=== PATIENT | male | born 1960 | race Caucasian/White ===

== ENCOUNTER 2022-09-27 11:59 | Emergency (ER) | payer OTHER ==
--- OUTSIDE RECORDS SUMMARY | 2022-09-27 12:03 | XMS REPORT | Continuity of Care Document ---
:1960 Author Organization [facility] t Address [address] [place] [address] Care Team Providers Name Role Phone Yariel Aguilar MD Primary Care Physician Brian Hemphill Attending Clinician RADIOLOGY Attending Clinician Unavailable Radiology Attending Clinician Unavailable TIMMY PINTO Attending Clinician Unavailable Ghada Comer Attending Clinician Unavailable Timmy Pinto MD Attending Clinician Doctor Unassigned, [place] Attending Clinician Unavailable ROSALVA SALAZAR Admitting Clinician Unavailable Payers Payer Name Policy Type Policy Number Effective Date Expiration Date S adarsh [employer] [id number] 2022 OUT OF NETWORK 00:00:00 Problems Condition Condition Condition Status Onset Resolution Last Treating Co mments Source Name Details Category Date Date Treatment Clinician Date Right hip Right hip Disease Active 2015-08 Uni vers pain pain 0-21 ity of 00:00: [place] 00 Medical Branch Lateral Lateral Disease Recurre 2015-08 Method i epicondyli epicondyli nce 0-18 st tis of tis of 00:00: Hospita left elbow left elbow 00 l Asthenia Asthenia Problem Active 2022-07-21 Memoria (finding) (finding) 12:36:52 l Active [place] Problem 07/21/2022 [facility] Ataxia Ataxia Problem Active 2022-07-21 [place] juan luis (finding) (finding) 12:36:52 l Active [place] Problem 07/21/2022 [facility] Dizziness Dizziness Problem Active 2022-07-21 Memoria (finding) (finding) 12:36:52 l Active [place] Problem 07/21/2022 [facility] Essential Essential Problem Active 2022-07-21 Memoria tremor tremor 12:36:52 l (disorder) (disorder) He rmann Active Problem 07/21/2022 [facility] Nausea Nausea Problem Active 2022-07-21 [place] juan luis (finding) (finding) 12:36:52 l Active [place] Problem 07/21/2022 [facility] Peripheral Periphera Problem Active 2022-07-21 Memoria demyelinat l 12:36:52 l ing demyelinat [place] n neuropathy ing (disorder) neuropathy (disorder) Active Problem 07/21/2022 [facility] Tremor Tremor Problem Active 2022-07-21 [place] juan luis (finding) (finding) 12:36:52 l Active [place] Problem 07/21/2022 [facility] Vertigo Vertigo Problem Active 2022-07-21 Me moria (finding) (finding) 12:36:52 l Active [place] Problem 07/21/2022 [facility] Depressive Depressiv Problem Active 2022-07-21 Memoria disorder e disorder 12:36:52 l (disorder) (disorder) [place] Active Problem 07/21/2022 [facility] Hiccoughs Hiccoughs Problem Active 2022-07-21 Memoria (finding) (finding) 12:36:52 l Active [place] Problem 07/21/2022 [facility] Allergies, Adverse Reactions, Alerts Allergy Allergy Status Severity Reaction(s) Onset Inactive Treating Comm ents Source Name Type Date Date Clinician PENICILL Drug Active Hives 2015-08 Univers INS Class 0-21 ity of 00:00: [place] 00 Medical Branch Penicill Propensi Active Hives 2015-08 Univer s ins ty to 0-21 ity of adverse 00:00: [place] reaction 00 Medical s Branch Penicill Propensi Active Hives 2015-08 Method i ins ty to 0-18 st adverse 00:00: Hospita reaction 00 l s to drug penicill penicill Active Memori a ins ins l [place] morphine morphine Active Memori a l [place] iodine iodine Active Memoria l [place] Social History Social Habit Start Date Stop Date Quantity Comments Source Social History 2022-07-18 2022-07-18 [facility] 15:55:14 15:55:14 Social History 2018-06-29 2018-06-29 [facility] 15:57:30 15:57:30 Alcohol intake 2016-05-31 2016-05-31 0 /d [facility] 00:00:00 00:00:00 Medical Branch Smoking Status Start Date Stop Date Source Tobacco smoking consumption unknown [facility] Tobacco smoking status [facility] Medications Ordered Filled Start Stop Current Ordering Indication Dosage Frequency Signature Comments Components Source Medication Medication Date Date Medication? 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, Weight promethazin 2021-08 Yes TAKE 1 [place] juan luis e 25 mg 2-08 TABLET BY l oral tablet 15:32: MOUTH FOUR [place] 00 TIMES A DAY NEEDED FOR HICCUPS famotidine 2021-08 Yes TAKE 1 Memor ia 20 mg oral 2-08 TABLET BY l tablet 15:32: MOUTH [place] 00 EVERYDAY AT BEDTIME omeprazole 2021-08 Yes TAKE 1 Memor ia 20 mg oral 2-08 CAPSULE BY l delayed 15:32: MOUTH [place] release 00 EVERY DAY capsule IN THE MORNING promethazin 2021-08 Yes TAKE 1 [place] juan luis e 25 mg 2-08 TABLET BY l oral tablet 15:32: MOUTH FOUR [place] 00 TIMES A DAY NEEDED FOR HICCUPS famotidine 2021-08 Yes TAKE 1 Memor ia 20 mg oral 2-08 TABLET BY l tablet 15:32: MOUTH [place] 00 EVERYDAY AT BEDTIME omeprazole 2021-08 Yes TAKE 1 Memor ia 20 mg oral 2-08 CAPSULE BY l delayed 15:32: MOUTH [place] release 00 EVERY DAY capsule IN THE MORNING Fish Oil 2021-08 Yes PO, 0 Memoria 2-08 Refill(s) l 15:31: [place] 00 Milk 2021-08 Yes 0 Memoria Thistle 2-08 Refill(s) l 15:31: [place] 00 Vitamin D3 2021-08 Yes 0 Memoria 2-08 Refill(s) l 15:31: [place] 00 Vitamin B12 2021-08 Yes 0 Memori a 2-08 Refill(s) l 15:31: [place] 00 calcium (as 2021-08 Yes 0 Memori a carbonate) 2-08 Refill(s) l 500 mg oral 15:31: [place] n tablet 00 Fish Oil 2021-08 Yes PO, 0 Memoria 2-08 Refill(s) l 15:31: [place] 00 Milk 2021-08 Yes 0 Memoria Thistle 2-08 Refill(s) l 15:31: [place] 00 Vitamin D3 2021-08 Yes 0 Memoria 2-08 Refill(s) l 15:31: [place] 00 Vitamin B12 2021-08 Yes 0 Memori a 2-08 Refill(s) l 15:31: [place] 00 calcium (as 2021-08 Yes 0 Memori a carbonate) 2-08 Refill(s) l 500 mg oral 15:31: [place] n tablet 00 multivitami 2021-08 Yes Daily, 0 Me moria n 2-08 Refill(s) l 15:30: [place] 00 multivitami 2021-08 Yes Daily, 0 Me moria n 2-08 Refill(s) l 15:30: [place] 00 topiramate 2021-08 Yes = 1 tab, Mem oria 50 mg oral 2-05 PO, l tablet 19:57: Bedtime, # Yoselin nn 00 90 tab, 2 Refill(s), Pharmacy: [id number], 187.96, cm, 09/13/21 9:07:00 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, Height, 100, kg, 09/13/21 9:07:00 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, Weight topiramate 2021-08 Yes = 1 tab, Mem oria 50 mg oral 2-05 PO, l tablet 19:57: Bedtime, # Yoselin nn 00 90 tab, 2 Refill(s), Pharmacy: [id number], 187.96, cm, 09/13/21 9:07:00 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, Height, 100, kg, 09/13/21 9:07:00 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, Weight sertraline 2021-08 Yes = 1 tab, Mem oria 50 mg oral 0-31 PO, Daily, l tablet 14:19: # 90 tab, [place] 00 3 Refill(s), Pharmacy: [id number], 187.96, cm, 09/13/21 9:07:00 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, Height, 100, kg, 09/13/21 9:07:00 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, Weight sertraline 2021-08 Yes = 1 tab, Mem oria 50 mg oral 0-31 PO, Daily, l tablet 14:19: # 90 tab, Lalo n 00 3 Refill(s), Pharmacy: [id number], 187.96, cm, 09/13/21 9:07:00 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, Height, 100, kg, 09/13/21 9:07:00 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, Weight topiramate 2021-0 Yes 50 mg = 1 Me moria 50 mg oral 2-03 tab, PO, l tablet 15:26: Bedtime, # Yoselin nn 00 90 tab, 2 Refill(s), Pharmacy: [facility] #[id number], 187.96, cm, 09/13/21 9:07:00 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, Height, 100, kg, 09/13/21 9:07:00 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, Weight topiramate 2021-0 Yes 50 mg = 1 Me moria 50 mg oral 2-03 tab, PO, l tablet 15:26: Bedtime, # Yoselin nn 00 90 tab, 2 Refill(s), Pharmacy: [facility] #[id number], 187.96, cm, 09/13/21 9:07:00 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, Height, 100, kg, 09/13/21 9:07:00 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, Weight sertraline 2020-0 Yes 50 mg = 1 Me moria 50 mg oral 9-03 tab, PO, l tablet 16:35: Daily, # [place] 00 90 tab, 3 Refill(s), Pharmacy: [facility] #[id number], 190.5, cm, 03/16/20 9:09:00 CDT, Height, 98.636, kg, 12/12/20 9:13:00 CDT, Weight sertraline 2020-0 Yes 50 mg = 1 Me moria 50 mg oral 9-03 tab, PO, l tablet 16:35: Daily, # [place] 00 90 tab, 3 Refill(s), Pharmacy: [facility] #[id number], 190.5, cm, 03/16/20 9:09:00 CDT, Height, 98.636, kg, 12/12/20 9:13:00 CDT, Weight sertraline 2020-0 No 50 mg = 1 Me moria 50 mg oral 9-02 tab, PO, l tablet 14:43: Daily, X [place] 90 day, # 90 tab, 1 Refill(s), Pharmacy: [facility] #[id number], 190.5, cm, 03/16/20 9:09:00 CDT, Height, 98.636, kg, 12/12/20 9:13:00 CDT, Weight sertraline 2020-0 No 50 mg = 1 Me moria 50 mg oral 9-02 tab, PO, l tablet 14:43: Daily, X [place] 00 90 day, # 90 tab, 1 Refill(s), Pharmacy: [facility] #[id number], 190.5, cm, 03/16/20 9:09:00 CDT, Height, 98.636, kg, 12/12/20 9:13:00 CDT, Weight sertraline 2020-0 Yes 50 mg = 1 Me moria 50 mg oral 5-04 tab, PO, l tablet 14:37: Daily, # [place] 00 90 tab, 1 Refill(s), Pharmacy: [id number], 190.5, cm, 03/16/20 9:09:00 CDT, Height, 98.636, kg, 12/12/20 9:13:00 CDT, Weight topiramate 1-0 Yes 50 mg = 1 Me moria 50 mg oral 5-04 tab, PO, l tablet 14:37: Bedtime, # Yoselin nn 00 90 tab, 2 Refill(s), Pharmacy: [facility] #[id number], 190.5, cm, 03/16/20 9:09:00 CDT, Height, 98.636, kg, 12/12/20 9:13:00 CDT, Weight sertraline 2020-0 Yes 50 mg = 1 Me moria 50 mg oral 5-04 tab, PO, l tablet 14:37: Daily, # [place] 00 90 tab, 1 Refill(s), Pharmacy: [facility] #[id number], 190.5, cm, 03/16/20 9:09:00 CDT, Height, 98.636, kg, 12/12/20 9:13:00 CDT, Weight topiramate 2020-0 Yes 50 mg = 1 Me moria 50 mg oral 5-04 tab, PO, l tablet 14:37: Bedtime, # Yoselin nn 00 90 tab, 2 Refill(s), Pharmacy: [facility] #[id number], 190.5, cm, 03/16/20 9:09:00 CDT, Height, 98.636, kg, 12/12/20 9:13:00 CDT, Weight topiramate 2020-0 Yes 50 mg = 1 Me moria 50 MG Oral 8-06 tab, PO, l Tablet 14:26: Bedtime, # Yoselin nn [Topamax] 00 90 tab, 3 Refill(s), Pharmacy: [id number], 190.5, cm, 03/16/20 9:09:00 CDT, Height, 101.818, kg, 03/16/20 9:09:00 CDT, Weight topiramate 2020-0 Yes 50 mg = 1 Me moria 50 MG Oral 8-06 tab, PO, l Tablet 14:26: Bedtime, # Yoselin nn [Topamax] 00 90 tab, 3 Refill(s), Pharmacy: [id number], 190.5, cm, 03/16/20 9:09:00 CDT, Height, 101.818, kg, 03/16/20 9:09:00 CDT, Weight topiramate 2019-1 Yes 25 mg = 1 Me moria 25 MG Oral 1-07 tab, PO, l Tablet 15:42: Bedtime, # Yoselin nn [Topamax] 39 90 tab, 3 Refill(s), Pharmacy: [facility] #[id number] topiramate 2018-08 Yes 25 mg = 1 Me moria 25 MG Oral 1-07 tab, PO, l Tablet 15:42: Bedtime, # Yoselin nn [Topamax] 39 90 tab, 3 Refill(s), Pharmacy: [facility] #[id number] topiramate No 25 mg = 1 Me moria 25 MG Oral 2-07 tab, PO, l Tablet 16:09: Bedtime, X Yoselin nn [Topamax] 00 30 day, # 30 tab, 4 Refill(s), Pharmacy: [facility] #[id number] topiramate No 25 mg = 1 Me moria 25 MG Oral 2-07 tab, PO, l Tablet 16:09: Bedtime, X Yoselin nn [Topamax] 00 30 day, # 30 tab, 4 Refill(s), Pharmacy: [facility] #[id number] metoprolol Yes 200 mg, [place] juan luis tartrate 2-07 PO, Daily, l 16:01: 0 [place] 00 Refill(s) metoprolol Yes 200 mg, [place] juan luis tartrate 2-07 PO, Daily, l 16:01: 0 [place] 00 Refill(s) Aspirin 2017-08 Yes 81 mg, PO, [place] juan luis 1-19 Daily, 0 l 15:56: Refill(s) [place] 00 losartan 50 2017-08 No 50 mg = 1 M emoria mg oral 1-19 tab, PO, l tablet 15:56: Daily, 0 [place] 00 Refill(s) metoprolol 2017-08 No 100 mg = 1 M emoria tartrate 1-19 tab, PO, l 100 mg oral 15:56: BID, 0 Herm madyson tablet 00 Refill(s) aspirin 2017-08 Yes 81 mg, PO, [place] juan luis 1-19 Daily, 0 l 15:56: Refill(s) [place] 00 Aspirin 2017-08 Yes 81 mg, PO, [place] juan luis 1-19 Daily, 0 l 15:56: Refill(s) [place] 00 losartan 50 2017-08 No 50 mg = 1 M emoria mg oral 1-19 tab, PO, l tablet 15:56: Daily, 0 [place] Refill(s) metoprolol 2017-08 No 100 mg = 1 M emoria tartrate 1-19 tab, PO, l 100 mg oral 15:56: BID, 0 Herm 00 Refill(s) aspirin 2017-08 Yes 81 mg, PO, [place] juan luis -19 Daily, 0 l 15:56: Refill(s) Sertraline 2017-08 Yes 50 mg, PO, M emoria 1-19 Daily, 0 l 15:35: Refill(s) Sertraline 2017-08 Yes 50 mg, PO, M emoria -19 Daily, 0 l 15:35: Refill(s) methylPREDN 2015-08 Yes 84mg Take 21 Uni vers ISolone 0-21 tablets by ity of (MEDROL, 00:00: mouth [place] GRACIE,) 4 mg 00 SEE-INSTRU Med ical tablets CTIONS. Branch follow package directions methylPREDN 2015-08 Yes 84mg Take 21 Uni vers ISolone 0-21 tablets by ity of (MEDROL, 00:00: mouth [place] GRACIE,) 4 mg 00 SEE-INSTRU Med ical tablets CTIONS. Branch follow package directions methylPREDN 2015-08 Yes 84mg Take 21 Uni vers ISolone 0-21 tablets by ity of (MEDROL, 00:00: mouth [place] GRACIE,) 4 mg 00 SEE-INSTRU Med ical tablets CTIONS. Branch follow package directions No known 2015-08 No No known Metho di medications 0-[address] 16:19: s Hospita 08 l Immunizations Ordered Immunization Filled Immunization Date Status Commen ts Source Name Name [id number] 2021-09-25 Completed [place] rial [id number] 00:00:00 Herm madyson Hx influenza 2021-09-25 Completed [facility] vaccine-unspecified 00:00:00 Yoselin nn [id number] 2021-09-25 Completed [place] rial [id number] 00:00:00 Herm madyson Hx influenza 2021-09-25 Completed [facility] vaccine-unspecified 00:00:00 Yoselin nn Vital Signs Vital Name Observation Time Observation Value Comments Source Systolic (mm Hg) 2022-07-18 15:12:00 [place] rial [place] Diastolic (mm Hg) 2022-07-18 15:12:00 Mem orial [place] Heart Rate 2022-07-18 15:12:00 [facility] [place] Height 2022-07-18 15:12:00 6 [ft_i] [facility] [place] Weight 2022-07-18 15:12:00 [facility] [place] BMI Calculated 2022-07-18 15:12:00 Memori al [place] Systolic (mm Hg) 2021-09-13 15:07:00 Milton rial Pedro Apblo Diastolic (mm Hg) 2021-09-13 15:07:00 Mem orial [place] Heart Rate 2021-09-13 15:07:00 [facility] [place] Respitory Rate 2021-09-13 15:07:00 Memori al [place] Height 2021-09-13 15:07:00 187.96 cm [facility] [place] Weight 2021-09-13 15:07:00 [facility] [place] BMI Calculated 2021-09-13 15:07:00 Memori al [place] Systolic (mm Hg) 2020-12-12 14:13:00 Milton rial [place] Diastolic (mm Hg) 2020-12-12 14:13:00 Mem orial [place] Heart Rate 2020-12-12 14:13:00 [facility] [place] Respitory Rate 2020-12-12 14:13:00 Memori al [place] Weight 2020-12-12 14:13:00 [facility] [place] Systolic (mm Hg) 2020-03-16 14:09:00 Milton rial [place] Diastolic (mm Hg) 2020-03-16 14:09:00 Mem orial [place] Heart Rate 2020-03-16 14:09:00 [facility] [place] Respitory Rate 2020-03-16 14:09:00 Memori al [place] Height 2020-03-16 14:09:00 190.5 cm [facility] [place] Weight 2020-03-16 14:09:00 [facility] [place] BMI Calculated 2020-03-16 14:09:00 Memori al [place] Diastolic (mm Hg) 2019-06-17 15:10:00 Mem orial [place] Heart Rate 2019-06-17 15:10:00 [facility] [place] Respitory Rate 2019-06-17 15:10:00 Memori al [place] Height 2019-06-17 15:10:00 190.5 cm [facility] [place] Weight 2019-06-17 15:10:00 [facility] [place] BMI Calculated 2019-06-17 15:10:00 Memori al [place] Systolic (mm Hg) 2019-06-17 15:10:00 Milton rial [place] BMI Calculated 2018-12-16 14:04:00 Memori al [place] Height 2018-12-16 14:04:00 190.5 cm [facility] [place] Weight 2018-12-16 14:04:00 [facility] [place] Heart Rate 2018-12-16 14:04:00 [facility] [place] Systolic (mm Hg) 2018-12-16 14:04:00 [place] rial [place] Diastolic (mm Hg) 2018-12-16 14:04:00 Mem orial [place] Respitory Rate 2018-12-16 14:04:00 Memori al [place] Systolic (mm Hg) 2018-09-17 15:24:00 [place] rial [place] Diastolic (mm Hg) 2018-09-17 15:24:00 Mem orial [place] Heart Rate 2018-09-17 15:24:00 [facility] [place] Respitory Rate 2018-09-17 15:24:00 Memori al [place] Height 2018-09-17 15:24:00 190.5 cm [facility] [place] Weight 2018-09-17 15:24:00 [facility] [place] BMI Calculated 2018-09-17 15:24:00 Memori al [place] BMI Calculated 2018-08-06 17:26:00 Memori al [place] Height 2018-08-06 17:26:00 190.5 cm [facility] [place] Weight 2018-08-06 17:26:00 [facility] [place] Systolic (mm Hg) 2018-08-06 17:26:00 Milton rial [place] Diastolic (mm Hg) 2018-08-06 17:26:00 Mem orial [place] Heart Rate 2018-08-06 17:26:00 [facility] [place] Respitory Rate 2018-08-06 17:26:00 Memori al [place] BMI Calculated 2018-06-29 15:31:00 Memori al [place] Weight 2018-06-29 15:31:00 [facility] [place] Height 2018-06-29 15:31:00 190.5 cm Dick [place] Heart Rate 2018-06-29 15:31:00 Dick [place] Systolic (mm Hg) 2018-06-29 15:31:00 Milton Chamorro Diastolic (mm Hg) 2018-06-29 15:31:00 Mem orial [place] Procedures Procedure Date / Time Performed Performing Clinician [place] MODIFIED BARIUM 2022-06-26 18:32:39 Requisition, Paper [facility] Medical Branch NOTICE OF PRIVACY 2022-06-12 13:52:33 Doctor Unassigned, No [facility] PRACTICES Name Medical Branch Gastric bypass [facility] [place] operation Plan of Care Planned Activity Planned Date Details Comments Source Future Scheduled 2022-07-26 COVID-19 VACCINE (#1) [facility] Hospital Test 17:09:33 [code = COVID-19 VACCINE (#1)] Future Scheduled 2022-07-26 COLONOSCOPY SCREENING [facility] Hospital Test 17:09:33 [code = COLONOSCOPY SCREENING] Future Scheduled 2022-07-26 SHINGLES VACCINES ([address] [facility] Hospital Test 17:09:33 of 2) [code = SHINGLES VACCINES (1 of 2)] Future Scheduled 2022-07-26 INFLUENZA VACCINE Method ist Hospital Test 17:09:33 [code = INFLUENZA VACCINE] Future Scheduled 2022-07-26 COVID-19 VACCINE (#1) [facility] Hospital Test 17:09:33 [code = COVID-19 VACCINE (#1)] Future Scheduled 2022-07-26 COLONOSCOPY SCREENING [facility] Hospital Test 17:09:33 [code = COLONOSCOPY SCREENING] Future Scheduled 2022-07-26 SHINGLES VACCINES ([address] [facility] Hospital Test 17:09:33 of 2) [code = SHINGLES VACCINES (1 of 2)] Future Scheduled 2022-07-26 INFLUENZA VACCINE Method ist Hospital Test 17:09:33 [code = INFLUENZA VACCINE] Encounters Start End Encounter Admission Attending Care Care Encounter Source Date/Time Date/Time Type Type Clinicians Facility Department ID 2023-01-16 2023-01-16 Outpatient LESLIE NELSON [id number] Memoria 09:00:00 09:00:00 11 l Pedro Pablo 2023-01-16 2023-01-16 Outpatient MHIE MHIE [id number] Memoria 09:00:00 09:00:00 11 l Pedro Pablo 2022-07-18 2022-07-19 Outpatient MHIE MNA [id number] Memoria 15:15:00 05:59:59 Neurology 10 l Hector Chamorro 2022-07-18 2022-07-19 Outpatient MHIE MNA [id number] Memoria 15:15:00 05:59:59 Neurology 10 l Hector Chamorro 2022-07-18 2022-07-18 Outpatient Kanchan [id number] 09:15:00 23:59:59 Brian Dwain Nascimento 2022-07-18 2022-07-18 Outpatient MHIE MHIE [id number] Memoria 09:15:00 09:15:00 10 l Pedro Pablo 2022-06-26 2022-06-26 Outpatient R RADIOLOGY [facility] [id number] Univers 08:42:30 23:59:00 ity of [facility] 2022-06-26 2022-06-26 Hospital Radiology [facility] [id number] Univers 08:42:30 23:59:00 Encounter ANDREA [id number] ity [facility] [id number] [facility] [id number] [address] 2022-06-26 2022-06-26 Outpatient R UJANY [facility] [id number] Univers 09:30:00 11:55:54 TIMMY ity of [facility] 2022-06-26 2022-06-26 Ancillary Ghada Davis [facility] [id number] Univers 09:30:00 11:55:54 Visit Timmy Pinto [id number] ity [facility] [id number] [facility] [id number] [address] 2022-06-12 2022-06-12 Orders Doctor TYRELL [id number] Univers 00:00:00 00:00:00 Only Unassigned, XU [id number] ity of [place] [facility] [id number] Chilo as [id number] [address] 2021-09-13 2021-09-14 Outpatient nullFlavo MNA [id number] Memoria 15:00:00 05:59:59 r Neurology 09 l Hector Chamorro 2021-09-13 2021-09-14 Outpatient nullFlavo MNA [id number] Memoria 15:00:00 05:59:59 r Neurology 09 l Hector Chamorro 2021-09-13 2021-09-13 Outpatient RONY HemphillSCHER MHMISCHER [id number] 09:00:00 23:59:59 Brian 09 Azam 2021-09-13 2021-09-13 Outpatient MHIE MHIE [id number] Memoria 09:00:00 09:00:00 09 vandana Chamorro 2021-01-12 2021-01-14 Outside nullFlavo MNA [id number] Memoria 14:02:20 04:59:59 Medical r Neurology 03 l Records Hector Chamorro 2021-01-12 2021-01-14 Outside nullFlavo MNA [id number] Memoria 14:02:20 04:59:59 Medical r Neurology 03 l Records Hector Rodriguezann 2021-01-12 2021-01-13 Outpatient MHMISCHER MHMISCHER [id number] 09:02:20 23:59:59 03 2020-12-12 2020-12-13 Outpatient nullFlavo MNA [id number] Memoria 14:00:00 04:59:59 r Neurology 08 l Hector Rodriguezann 2020-12-12 2020-12-13 Outpatient nullFlavo MNA [id number] Memoria 14:00:00 04:59:59 r Neurology 08 l Hector Rodriguezann 2020-12-12 2020-12-12 Outpatient RONY HemphillSCHER MHMISCHER [id number] 09:00:00 23:59:59 Brian 08 Azam 2020-12-12 2020-12-12 Outpatient MHIE MHIE [id number] Memoria 09:00:00 09:00:00 08 vandana [place] 2020-03-16 2020-03-17 Outpatient nullFlavo MNA [id number] Memoria 14:00:00 04:59:59 r Neurology 07 l Hector Chamorro 2020-03-16 2020-03-17 Outpatient nullFlavo MNA [id number] Memoria 14:00:00 04:59:59 r Neurology 07 l Hector Chamorro 2020-03-16 2020-03-16 Outpatient Kanchan MHMISCHER MHMISCHER [id number] 09:00:00 23:59:59 Brian Britni Nascimento 2020-03-16 2020-03-16 Ambulatory nullFlavo MNA [id number] Memoria 14:00:00 14:00:00 Pre-Reg r Neurology 06 l Hector [place] 2020-03-16 2020-03-16 Ambulatory nullFlavo MNA [id number] Memoria 14:00:00 14:00:00 Pre-Reg r Neurology 06 l Hector Chamorro 2020-03-16 2020-03-16 Outpatient MHIE MHIE [id number] Memoria 09:00:00 09:00:00 07 vandana [place] 2020-03-16 2020-03-16 Outpatient MHIE MHIE [id number] Memoria 09:00:00 09:00:00 06 vandana [place] 2020-03-16 2020-03-16 Outpatient Kanchan MISCHER MISCHER [id number] 09:00:00 09:00:00 Brian Dion Nascimento 2019-06-17 2019-06-18 Outpatient nullFlavo MNA [id number] Memoria 15:15:00 05:59:59 r Neurology 05 l Hector Rodriguezann 2019-06-17 2019-06-18 Outpatient nullFlavo MNA [id number] Memoria 15:15:00 05:59:59 r Neurology 05 l Hector Chamorro 2019-06-17 2019-06-17 Outpatient Kanchan MHMISCHER MHMISCHER [id number] 09:15:00 23:59:59 Brian Gutierrez Nascimento 2019-06-17 2019-06-17 Outpatient MHIE MHIE [id number] Memoria 09:15:00 09:15:00 05 [place]andana [place] 2018-12-16 2018-12-17 Outpatient nullFlavo MNA [id number] Memoria 14:00:00 04:59:59 r Neurology 04 l Hector Chamorro 2018-12-16 2018-12-17 Outpatient nullFlavo MNA [id number] Memoria 14:00:00 04:59:59 r Neurology 04 l Hector Chamorro 2018-12-16 2018-12-16 Outpatient TAYLOR HemphillWYSCHER [id number] 09:00:00 23:59:59 Brian Karine Nascimento 2018-12-16 2018-12-16 Outpatient MHIE MHIE [id number] Memoria 09:00:00 09:00:00 04 vandana Chamorro 2018-09-17 2018-09-18 Outpatient nullFlavo MNA [id number] Memoria 15:30:00 05:59:59 r Neurology 03 l Hector Chamorro 2018-09-17 2018-09-18 Outpatient nullFlavo MNA [id number] Memoria 15:30:00 05:59:59 r Neurology 03 l Hector Chamorro 2018-09-17 2018-09-17 [id number] 09:30:00 23:59:59 Brian Margi Nascimento 2018-09-17 2018-09-17 Outpatient MHIE MHIE [id number] Memoria 09:30:00 09:30:00 03 vandana Chamorro 2018-08-15 2018-08-17 Outside nullFlavo MNA [id number] Memoria 19:27:00 05:59:59 Medical r Neurology 01 l Gabriela Chamorro 2018-08-15 2018-08-17 Outside nullFlavo MNA [id number] Memoria 19:27:00 05:59:59 Medical r Neurology 01 l Records Hector Chamorro 2018-08-15 2018-08-16 Outpatient MISCHER MISCHER [id number] 13:27:00 23:59:59 2018-08-06 2018-08-07 Outpatient nullFlavo MNA [id number] Memoria 17:30:00 05:59:59 r Neurology 02 l Hector Chamorro 2018-08-06 2018-08-07 Outpatient nullFlavo MNA [id number] Memoria 17:30:00 05:59:59 r Neurology 02 l Hector Chamorro 2018-08-06 2018-08-06 [facility] [id number] 11:30:00 23:59:59 Brian 02 Azam 2018-08-06 2018-08-06 Outpatient MHIE MHIE [id number] Memoria 11:30:00 11:30:00 02 vandana Fairbanks 2018-06-29 2018-06-30 Outpatient nullFlavo MNA [id number] Memoria 15:30:00 05:59:59 r Neurology 01 l Hector Fairbanks 2018-06-29 2018-06-30 Outpatient nullFlavo MNA [id number] Memoria 15:30:00 05:59:59 r Neurology 01 l Hector Fairbanks 2018-06-29 2018-06-29 [facility] Kanc[id number] 09:30:00 23:59:59 Brian Azam 2018-06-29 2018-06-29 Outpatient MHIE TAYLORIE [id number] Memoria 09:30:00 09:30:00 01 vandana [place]banks 2018-04-16 2018-04-16 Outpatient MHIE TAYLORIE [id number] Memoria 15:00:00 15:00:00 00 vandana [place]banks 2018-04-16 2018-04-16 Outpatient MHIE MHIE [id number] Memoria 15:00:00 15:00:[address] [facility] Results Test Description Test Time Test Comments Results Result Comments Source [facility] 2019-06-17 16:11:00 Test Item Value Reference Range Interpretation Comme nts BUN (test code = BUN) 11 03-04 [facility] [employer] [id number] 16:11:00 Test Item Value Reference Range Interpretation Comments Creatinine Lvl (test code = Creatinine 0.92 0.70-1.25 Lvl) [facility] [employer] [id number] 16:11:00 Test Item Value Reference Range Interpretation Comments eGFR NON-AFR. JAMAICAN (test code = 90 eGFR NON-AFR. JAMAICAN) [facility] [employer] [id number] 16:11:00 Test Item Value Reference Range Interpretation Comments eGFR (test code = eGFR 104 ) [facility] [employer] [id number] 16:11:00 Test Item Value Reference Range Interpretation Comments B/C Ratio (test code = B/C NOT APPLICABLE 01-30 Ratio) [id number] 16:11:00 Test Item Value Reference Range Interpretation Comments Sodium Lvl (test code = Sodium Lvl) 139 135-146 [id number] 16:11:00 Test Item Value Reference Range Interpretation Comments Potassium Lvl (test code = Potassium 4.8 3.5-5.3 Lvl) [facility]qidiOGRCQRSOTSAO3959-32-64 16:11:00 Test Item Value Reference Range Interpretation Comments Chloride Lvl (test code = Chloride Lvl) 102 98-110 [facility]ZgtfoqiBNOYYALBEBGW1683-55-60 16:11:00 Test Item Value Reference Range Interpretation Comments CO2 (test code = CO2) [facility]2019-11-07 16:11:00 Test Item Value Reference Range Interpretation Comments BUN (test code = BUN) 03-04 [facility]2019-11-07 16:11:00 Test Item Value Reference Range Interpretation Comments Creatinine Lvl (test code = Creatinine 0.92 0.70-1.25 Lvl) [facility]2019-11-07 16:11:00 Test Item Value Reference Range Interpretation Comments eGFR NON-AFR. JAMAICAN (test code = 90 eGFR NON-AFR. JAMAICAN) [facility]2019-11-07 16:11:00 Test Item Value Reference Range Interpretation Comments eGFR (test code = eGFR 104 ) [facility]2019-11-07 16:11:00 Test Item Value Reference Range Interpretation Comments B/C Ratio (test code = B/C NOT APPLICABLE 6-22 Ratio) [facility]uzqsnvFTBPHCYIBPNF6748-79-69 16:11:00 Test Item Value Reference Range Interpretation Comments Sodium Lvl (test code = Sodium Lvl) 139 135-146 [facility]OsgbqkhCEBGVDTXEOKA6349-02-57 16:11:00 Test Item Value Reference Range Interpretation Comments Potassium Lvl (test code = Potassium 4.8 3.5-5.3 Lvl) [facility]CxhaqdyPMHNVLQONOUR2433-11-09 16:11:00 Test Item Value Reference Range Interpretation Comments Chloride Lvl (test code = Chloride Lvl) 102 98-110 [facility][id number] 16:11:00 Test Item Value Reference Range Interpretation Comments CO2 (test code = CO2) 29 20-32 [facility]2018-12-28 19:27:00 Test Item Value Reference Range Interpretation Comments Vitamin B6 (test code = Vitamin B6) 37.1 2.1-21.7 [facility]2018-12-28 19:27:00 Test Item Value Reference Range Interpretation Comments VITAMIN B1 (THIAMINE) WHOLE BLOOD (test 161 78-185 code = VITAMIN B1 (THIAMINE) WHOLE BLOOD) [id number] 19:27:00 Test Item Value Reference Range Interpretation Comments Sed Rate (test code = Sed Rate) 6 [facility]97[facility]65 19:27:00 Test Item Value Reference Range Interpretation Comments DOUG Ser Interp (test code = DOUG SEE COMMENT Ser Interp) [facility]VbprdxdTLYER9808-30-57 19:27:00 Test Item Value Reference Range Interpretation Comments Zinc Lvl (test code = Zinc Lvl) 118 60-130 [facility] TaylorWnusknvRQLUE7189-13-12 19:27:00 Test Item Value Reference Range Interpretation Comments Copper Lvl (test code = Copper Lvl) 142 70-175 [facility]2018-12-28 19:27:00 Test Item Value Reference Range Interpretation Comments Vitamin B6 (test code = Vitamin B6) 37.1 2.1-21.7 [facility]2018-12-28 19:27:00 Test Item Value Reference Range Interpretation Comments VITAMIN B1 (THIAMINE) WHOLE BLOOD (test 161 78-185 code = VITAMIN B1 (THIAMINE) WHOLE BLOOD) [id number] 19:27:00 Test Item Value Reference Range Interpretation Comments Sed Rate (test code = Sed Rate) 6 [facility]od[facility]ryOKOPHVKPJT3949-25-30 19:27:00 Test Item Value Reference Range Interpretation Comments DOUG Ser Interp (test code = DOUG SEE COMMENT Ser Interp) [facility] TaylorMsamrzrKEQSL8187-61-55 19:27:00 Test Item Value Reference Range Interpretation Comments Zinc Lvl (test code = Zinc Lvl) 118 60-130 [facility] TaylorUjkwvbcFPZLK8394-91-97 19:27:00 Test Item Value Reference Range Interpretation Comments Copper Lvl (test code = Copper Lvl) 142 70-175 [facility]
--- NOTE | 2022-09-27 13:17 | ER ---
Nurse's Notes [facility] Name: Omid Saldana Jr Age: 62 yrs Sex: Male : 1960 Arrival Date: 09/27/2022 Time: 12:02 Bed 20 Private MD: Leandro Sandra C Diagnosis: Displaced fracture of shaft of left clavicle Presentation: 09/27 12:11 Chief complaint: Patient states: fell on left shoulder last night, denies LOC. I have kr3 pain in my left shoulder especially last night when I was sleeping. Care prior to arrival: None. Mechanism of Injury: Fall. Trauma event details: Injury occurred in the [facility]. 12:11 Acuity: SIMON 4 kr3 12:11 Acuity: SIMON 3 kr3 12:11 Method Of Arrival: Ambulatory kr3 12:18 Coronavirus screen: Vaccine status: Patient reports receiving the 2nd dose of the covid kr3 vaccine. Ebola Screen: Patient denies travel to an Ebola-affected area in the 21 days before illness onset. Initial Sepsis Screen: Does the patient meet any 2 criteria? No. Patient's initial sepsis screen is negative. Does the patient have a suspected source of infection? No. Patient's initial sepsis screen is negative. Risk Assessment: Do you want to hurt yourself or someone else?. Onset of symptoms was September 27, 2022. Historical: - Allergies: 12:15 Morphine; kr3 12:15 PENICILLINS; kr3 - Home Meds: 12:15 Metoprolol Tartrate Oral [Active]; kr3 13:29 sertraline 50 mg oral tab [Active]; topiramate 50 mg oral tab [Active]; promethazine 25 kr3 mg Oral tab [Active]; omeprazole 20 mg Oral cpDR [Active]; famotidine 20 mg Oral tab [Active]; baclofen 10 mg Oral tab [Active]; - PMHx: 12:15 Hypertensive disorder; kr3 - PSHx: 12:16 gastric bypass; kr3 - Immunization history: Last tetanus immunization:. - Social history:: Smoking status: Patient denies any tobacco usage or history of. Screenin:18 Abuse screen: Denies threats or abuse. Nutritional screening: No deficits noted. kr3 Tuberculosis screening: No symptoms or risk factors identified. 12:20 [facility] ED Fall Risk Assessment (Adult) History of falling in the last 3 months, kr3 including since admission Yes- single mechanical fall (1 pt) Confusion or Disorientation No (0 pts) Intoxicated or Sedated No (0 pts) Impaired Gait No (0 pts) Mobility Assist Device Used No (0 pt) Altered Elimination No (0 pt) Score/Fall Risk Level 0 - 2 = Low Risk Oriented to surroundings, Maintained a safe environment, Educated pt \T\ family on fall prevention, incl call for assistance when getting out of bed, Assessed \T\ reinforced patient's understanding of fall precautions, Hourly rounding (assess needs \T\ fall precautionary measures) done. Primary Survey: 12:16 NO uncontrolled hemorrhage observed. Breathing/Chest: Spontaneous respiratory effort, kr3 equal unlabored respirations, breath sounds clear bilaterally, regular pattern, symmetrical chest rise and fall. Circulation: No external hemorrhage present. Regular and strong central pulse, skin warm/dry/normal color. Disability Client is alert. Exposure/Environment: A warming method has been applied: A warm blanket has been provided to the patient. 13:10 Reassessment Alertness and Airway: Awake and alert. The airway is patent. Breathing: kr3 Spontaneous respiratory effort, equal unlabored respirations, breath sounds clear bilaterally, regular pattern with symmetrical chest rise and fall. Circulation: No external hemorrhage noted. Regular and strong central pulse, skin warm/dry/normal color. Disability: Alert. Assessment: 12:14 General: Appears in no apparent distress. uncomfortable, Behavior is calm, cooperative, kr3 appropriate for age. Pain: Complains of pain in anterior aspect of left shoulder and posterior aspect of left shoulder. Neuro: Level of Consciousness is awake, alert, obeys commands, Oriented to person, place, time, situation. EENT: No signs and/or symptoms were reported regarding the EENT system. Cardiovascular: Patient's skin is warm and dry. Respiratory: Airway is patent Respiratory effort is even, unlabored, Respiratory pattern is regular, symmetrical. GI: No signs and/or symptoms were reported involving the gastrointestinal system. : No signs and/or symptoms were reported regarding the genitourinary system. Derm: No signs and/or symptoms reported regarding the dermatologic system. Musculoskeletal: Circulation, motion, and sensation intact. Range of motion: limited in left shoulder. 13:15 Reassessment: Patient appears in no apparent distress at this time. Patient and/or kr3 family updated on plan of care and expected duration. Pain level reassessed. Patient is alert, oriented x 3, equal unlabored respirations, skin warm/dry/pink. Vital Signs: 12:16 BP 155 / 95; Pulse 81; Resp 18; Temp 97.7; Pulse Ox 100% ; Weight 90.72 kg; Height 6 kr3 ft. 3 in. (190.50 cm); Pain 3/10; 12:18 BP 155 / 95; Pulse 81; Resp 18; Temp 97.7; Pulse Ox 100% ; kr3 13:00 BP 150 / 88; Pulse 70; Resp 18; Pulse Ox 98% on R/A; kr3 12:16 Body Mass Index 25.00 (90.72 kg, 190.50 cm) kr3 Yayo Coma Score: 12:17 Eye Response: spontaneous(4). Verbal Response: oriented(5). Motor Response: obeys kr3 commands(6). Total: 15. Trauma Score (Adult): 12:17 Eye Response: spontaneous(1); Verbal Response: oriented(1); Motor Response: obeys kr3 commands(2); Systolic BP: > 89 mm Hg(4); Respiratory Rate: 10 to 29 per min(4); [place] Score: 15; Trauma Score: 12 ED Course: 12:02 Patient arrived in ED. mr 12:03 Leandro Sandra MD is Private Physician. mr 12:04 Mimi Thomas FNP-C is [facility]. kb 12:04 Stephen Hernández MD is Attending Physician. kb 12:04 [facility] sb[facility] 12:10 Arm band placed on right wrist. Patient placed in an exam room, on a stretcher. kr3 12:11 Radha Davalos, SHABNAM is Primary Nurse. kr3 12:14 Triage completed. kr3 12:19 Bed in low position. Call light in reach. Side rails up X 1. kr3 12:20 Patient maintains SpO2 saturation greater than 95% on room air. kr3 12:46 Shoulder Left (2 View) XRAY In Process Unspecified. EDMS 13:49 No provider procedures requiring assistance completed. Patient did not have IV access kr3 during this emergency room visit. 13:51 Thermoregulation: warm blanket given to patient. kr3 Administered Medications: No medications were administered Medication: 13:51 VIS not applicable for this client. kr3 Intake: 13:50 PO: 0ml; Total: 0ml. kr3 Outcome: 13:17 Discharge ordered by . kb 13:44 Patient left the ED. kr3 13:49 Discharged to home ambulatory. kr3 13:49 Condition: stable 13:49 Discharge instructions given to patient, Instructed on discharge instructions, follow up and referral plans. medication usage, Demonstrated understanding of instructions, follow-up care, medications, Prescriptions given X 1. 13:50 Patient's length of stay was not longer than 2 hours. kr3 Signatures: Dispatcher [employer] EDOR Mimi Thomas, JAYDEC VILMA-Betzaida Smith Kelley, RN RN kr3 Gillian Harris, PA-C PA-C sb4
--- NOTE | 2022-09-27 13:17 | EDPHYS ---
Physician Documentation [facility] Name: Omid Saldana Jr Age: 62 yrs Sex: Male : 1960 Arrival Date: 09/27/2022 Time: 12:02 Bed 20 Private MD: Leandro Sandra C ED Physician Stephen Hernández HPI: 09/27 13:08 This 62 yrs old Male presents to ER via Ambulatory with complaints of Fall Injury, kb Shoulder Injury. 13:08 Details of fall: The patient fell from an upright position, while walking. Onset: The kb symptoms/episode began/occurred yesterday. Associated injuries: The patient sustained left shoulder, deformity, painful injury. Severity of symptoms: At their worst the symptoms were moderate, in the emergency department the symptoms are unchanged. The patient has not experienced similar symptoms in the past. The patient has not recently seen a physician. Historical: - Allergies: 12:15 Morphine; kr3 12:15 PENICILLINS; kr3 - Home Meds: 12:15 Metoprolol Tartrate Oral [Active]; kr3 13:29 sertraline 50 mg oral tab [Active]; topiramate 50 mg oral tab [Active]; promethazine 25 kr3 mg Oral tab [Active]; omeprazole 20 mg Oral cpDR [Active]; famotidine 20 mg Oral tab [Active]; baclofen 10 mg Oral tab [Active]; - PMHx: 12:15 Hypertensive disorder; kr3 - PSHx: 12:16 gastric bypass; kr3 - Immunization history: Last tetanus immunization:. - Social history:: Smoking status: Patient denies any tobacco usage or history of. ROS: 13:08 Constitutional: Negative for fever, chills, and weight loss. kb 13:08 MS/extremity: Positive for deformity, pain, of the left shoulder. 13:08 All other systems are negative. Exam: 13:08 Constitutional: This is a well developed, well nourished patient who is awake, alert, kb and in no acute distress. Head/Face: Normocephalic, atraumatic. ENT: Moist Mucous membranes Cardiovascular: Regular rate and rhythm with a normal S1 and S2. No gallops, murmurs, or rubs. No pulse deficits. Respiratory: Respirations even and unlabored. No increased work of breathing. Talking in full sentences Abdomen/GI: Soft, non-tender. No distention Skin: Warm, dry with normal turgor. Normal color. Neuro: Awake and alert, GCS 15, oriented to person, place, time, and situation. Moves all extremities. Normal gait. Psych: Awake, alert, with orientation to person, place and time. Behavior, mood, and affect are within normal limits. 13:08 Musculoskeletal/extremity: Extremities: grossly normal except: noted in the left shoulder: deformity, pain, ROM: intact in all extremities, Circulation is intact in all extremities. Sensation intact. Vital Signs: 12:16 BP 155 / 95; Pulse 81; Resp 18; Temp 97.7; Pulse Ox 100% ; Weight 90.72 kg; Height 6 kr3 ft. 3 in. (190.50 cm); Pain 3/10; 12:18 BP 155 / 95; Pulse 81; Resp 18; Temp 97.7; Pulse Ox 100% ; kr3 13:00 BP 150 / 88; Pulse 70; Resp 18; Pulse Ox 98% on R/A; kr3 12:16 Body Mass Index 25.00 (90.72 kg, 190.50 cm) kr3 Yayo Coma Score: 12:17 Eye Response: spontaneous(4). Verbal Response: oriented(5). Motor Response: obeys kr3 commands(6). Total: 15. Trauma Score (Adult): 12:17 Eye Response: spontaneous(1); Verbal Response: oriented(1); Motor Response: obeys kr3 commands(2); Systolic BP: > 89 mm Hg(4); Respiratory Rate: 10 to 29 per min(4); Yayo Score: 15; Trauma Score: 12 MDM: 12:04 Patient medically screened. kb 13:01 Data reviewed: vital signs, nurses notes. Independent interpretation of the following kb test(s) in the Emergency Department X-Ray: My interpretation is shoulder x-ray, interpreted by me, reveals clavicle fracture. 13:05 Differential diagnosis: Fracture, dislocation. Counseling: I had a detailed discussion kb with the patient and/or guardian regarding: the historical points, exam findings, and any diagnostic results supporting the discharge/admit diagnosis, radiology results, the need for outpatient follow up, a orthopedic surgeon, to return to the emergency department if symptoms worsen or persist or if there are any questions or concerns that arise at home. ED course: Patient is a 62-year-old male with a history of hypertension and tachycardia that presents for left shoulder pain after a fall yesterday. Patient states he fell after consuming some wine. Deformity noted to left shoulder area on exam, full range of motion that reproduces mild pain. Radial pulse intact. X-ray, read by me, reveals displaced clavicle fracture. Will place patient in sling and recommend follow-up with orthopedics.. 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 Patient has no prescriptions in system.. kb 09/27 12:09 Order name: Shoulder Left (2 View) XRAY; Complete Time: 13:29 kb 09/27 13:04 Order name: Sling; Complete Time: 13:32 kb Administered Medications: No medications were administered Disposition: 14:43 Co-signature as Attending Physician, Stephen Hernández MD I reviewed the patient's care rt provided by the Advanced Practice Provider and agree with the diagnosis and treatment plan. Disposition Summary: 09/27/22 13:17 Discharge Ordered Location: Home kb Condition: Stable kb Diagnosis - Displaced fracture of shaft of left clavicle kb Followup: kb - With: Emergency Department - When: As needed - Reason: Worsening of condition Followup: kb - With: Private Physician - When: 2 - 3 days - Reason: Recheck today's complaints, Continuance of care, Re-evaluation by your physician Discharge Instructions: - Discharge Summary Sheet kb - Clavicle Fracture, Feax-ee-Ekss kb Forms: - Medication Reconciliation Form kb - Thank You Letter kb - Antibiotic Education kb - Prescription Opioid Use kb Prescriptions: - Tramadol 50 mg Oral Tablet - take 1 tablet by ORAL route every 8 hours as needed; 12 tablet; Refills: 0, kb Product Selection Permitted Signatures: Dispatcher [employer] EDMimi Phillips, Radha Good RN RN kr3 Stephen Hernández MD MD rt
--- NOTE | 2022-09-27 13:28 | RAD REPORT ---
EXAM DESCRIPTION: RAD - Shoulder Left 2 View - 09/27/2022 12:44 pm CLINICAL HISTORY: Pain. Fall COMPARISON: None. TECHNIQUE: Internal and external rotation views of the left shoulder were obtained. FINDINGS: Small inferiorly displaced fracture at the distal aspect of the clavicle. Crescentic small radiodensity just above the cricoid process could represent a small avulsion fracture as well. Minim al widening of the AC joint. Surrounding soft tissue swelling. No acute fractures of the humeral head . Glenohumeral Joint alignment is maintained. IMPRESSION: Inferiorly displaced fracture distal aspect of the clavicle. Suggestion of small avulsio n fracture at the tip of the cricoid process as well.
[2022-09-27 13:49] VITALS: TEMP 97.7
[2022-09-27 13:51] VITALS: BP 150/88; O2SAT 98
== END 2022-09-27 13:44 | disposition home or self-care (01) ==
LOC: ER 11:59
DX: S42.022A Displaced fracture of shaft of left clavicle, initial encounter for closed fracture (principal); I10 Essential (primary) hypertension; Z95.1 Presence of aortocoronary bypass graft; Z88.0 Allergy status to penicillin; Z88.5 Allergy status to narcotic agent
CPT/HCPCS: 99284

== ENCOUNTER 2024-01-09 10:24 | Emergency (ER) | payer OTHER ==
[2024-01-09] MEDS ORDERED: FAMOTIDINE 20 MG/2 ML VIAL IV ONE (11:10)
[2024-01-09] MEDS ORDERED: NA CHLORIDE 0.9% 1,000 ML ONE (11:11)
[2024-01-09 11:14] LABS: Absolute Lymphocytes (CBC) 0.8 K/uL (0.7-4.9); Absolute Monocytes 0.9 K/uL (0.1-1.3); Basophils % 0.2 % (0-1.3); Eosinophils % 0.1 % (0-4.4); Hematocrit 34.6 % (39.6-49.0); Hemoglobin 11.3 g/dL (13.6-17.9); Lymphocytes % 10.5 % (15.3-44.8); MCH 29.6 pg (27.0-35.0); MCHC 32.5 g/dL (32.0-36.0); MCV 91.1 fL (80-100); Monocytes % 11.3 % (3.3-12.3); Neutrophils % 77.9 % (41.7-73.7); Platelets 155 thou/uL (152-406); Red Cell Distribution Width 20.1 % (12.1-15.2)
[2024-01-09 11:26] LABS: Albumin 2.8 g/dL (3.4-5.0); Albumin/Globulin Ratio 0.7 (1.1-1.8); Anion Gap 8.5 mEq/L (5.0-15.0); Bilirubin Total 1.3 mg/dL (0.2-1.0); Potassium 3.5 mEq/L (3.5-5.1); Protein, Total 6.8 g/dL (6.4-8.2)
--- NOTE | 2024-01-09 12:09 | RAD REPORT ---
EXAM DESCRIPTION: CT - Abdomen Pelvis W Contrast - 01/09/2024 11:53 am CLINICAL HISTORY: Abdominal pain COMPARISON: none. TECHNIQUE: Computed axial tomography of the abdomen pelvis was obtained. 100 cc Isovue-300 was admin istered intravenously. Oral contrast was not requested which limits evaluation of bowel and appendix All CT scans are performed using dose optimization technique as appropriate and may include automated exposure control or mA/KV adjustment according to patient size. FINDINGS: Fatty liver. Small hepatic cysts. Post surgical changes involve stomach The spleen, pancreas, adrenals and kidneys are unremarkable. No evidence diverticulitis. Tiny umbilical hernia. Mild compression deformity L1 vertebral body probably chronic IMPRESSION: No acute abnormality is displayed.
[2024-01-09 12:15] LABS: Anisocytosis SLIGHT; Blood Morphology Comment NOTED (NOT SEEN); Platelet Estimate ADEQ; White Blood Cell Scan OK (OK)
--- NOTE | 2024-01-09 12:45 | ER ---
Nurse's Notes [facility] Name: Omid Saldana Jr Age: 63 yrs Sex: Male : 1960 Arrival Date: 01/09/2024 Time: 10:24 Bed 2 Private MD: Diagnosis: Upper GI bleed;Anemia, unspecified;Weakness Presentation: 01/08 10:42 Chief complaint: EMS states: he has been sick and not eating, has only had one ensure iw in 3 days, also has had black tarry stool X 3 days , he is not getting up and walking , has had congestion and phlegm. Coronavirus screen: Client presents with at least one sign or symptom that may indicate coronavirus-19. Ebola Screen: Patient negative for fever greater than or equal to 101.5 degrees Fahrenheit, and additional compatible Ebola Virus Disease symptoms Patient denies exposure to infectious person. Patient denies travel to an Ebola-affected area in the 21 days before illness onset. No symptoms or risks identified at this time. Initial Sepsis Screen: Does the patient meet any 2 criteria? HR > 90 bpm. Does the patient have a suspected source of infection? No. Patient's initial sepsis screen is negative. Risk Assessment: Do you want to hurt yourself or someone else? Patient reports no desire to harm self or others. Onset of symptoms was January 06, 2024. 10:42 Method Of Arrival: EMS: [facility] iw 10:42 Acuity: SIMON 3 iw 10:46 Care prior to arrival: Medication(s) given: Normal saline infusion, 500 mL, IV iw initiated. 18 GA, in the right forearm, Glucose check: 125. Historical: - Allergies: 10:44 Morphine; iw 10:44 PENICILLINS; iw - PMHx: 10:44 Hypertensive disorder; iw - PSHx: 10:44 Gastric Bypass; iw - Immunization history:: Adult Immunizations. - Infectious Disease History:: Denies. - Social history:: Smoking status: . Screenin:30 [facility] ED Fall Risk Assessment (Adult) History of falling in the last 3 months, nj1 including since admission No falls in past 3 months (0 pts) Confusion or Disorientation No (0 pts) Intoxicated or Sedated No (0 pts) Impaired Gait Yes (1 pt) Mobility Assist Device Used No (0 pt) Altered Elimination Yes (1 pt) Score/Fall Risk Level 0 - 2 = Low Risk Oriented to surroundings, Maintained a safe environment, Hourly rounding (assess needs \T\ fall precautionary measures) done. Abuse screen: Denies threats or abuse. Denies injuries from another. Nutritional screening: No deficits noted. Tuberculosis screening: No symptoms or risk factors identified. Assessment: 11:25 General: Appears in no apparent distress. uncomfortable, Behavior is calm, cooperative, nj1 appropriate for age. 11:25 Pain: Denies pain. Neuro: Level of Consciousness is awake, alert, obeys commands, nj1 Oriented to person, place, time, situation, Reports weakness. Cardiovascular: Patient's skin is warm and dry. Respiratory: Airway is patent Respiratory effort is even, unlabored. GI: Reports Black stools Patient currently denies abdominal pain, nausea. 11:59 Reassessment: Patient appears in no apparent distress at this time. No changes from [facility] previously documented assessment. Patient and/or family updated on plan of care and expected duration. Pain level reassessed. Patient is alert, oriented x 3, equal unlabored respirations, skin warm/dry/pink. 14:21 Reassessment: Patient appears in no apparent distress at this time. Patient and/or [facility] family updated on plan of care and expected duration. Pain level reassessed. Patient is alert, oriented x 3, equal unlabored respirations, skin warm/dry/pink. 15:30 Reassessment: Patient appears in no apparent distress at this time. No changes from [facility] previously documented assessment. Patient and/or family updated on plan of care and expected duration. Pain level reassessed. Patient is alert, oriented x 3, equal unlabored respirations, skin warm/dry/pink. 16:30 Reassessment: Patient appears in no apparent distress at this time. Patient is alert, nj1 oriented x 3, equal unlabored respirations, skin warm/dry/pink. Vital Signs: 10:43 BP 165 / 107; Pulse 114; Resp 18; Temp 99; Pulse Ox 100% on R/A; iw 11:59 BP 163 / 89; Pulse 103; Resp 18; Pulse Ox 100% ; nj1 14:20 BP 136 / 88; Pulse 103; Resp 18; Pulse Ox 100% ; nj1 15:35 BP 129 / 91; Pulse 93; Resp 15; Pulse Ox 100% on R/A; nj1 16:30 BP 123 / 86; Pulse 92; Resp 19; Pulse Ox 100% ; nj1 ED Course: 10:34 Patient arrived in ED. ph 10:37 Prosper Lara DO is Attending Physician. ms3 10:43 Triage completed. iw 10:44 Arm band placed on. iw 11:08 Ksenia Rosario, RN is Primary Nurse. nj1 11:30 Patient has correct armband on for positive identification. Bed in low position. Call nj1 light in reach. Side rails up X 1. Adult w/ patient. Provided Education on: call light, fall precautions. 11:30 Client placed on continuous cardiac and pulse oximetry monitoring. NIBP monitoring nj1 applied. Warm blanket given. 11:55 CT Abd/Pelvis - IV Contrast Only In Process Unspecified. EDMS 12:[address] Lara with [facility]. 12:58 administrative approval given by [facility]/ patient has been eb accepted to [facility] bed 427/ Dr. Armani Vargas has accepted the patient in transfer/ report to be called to the nurse Lisa Haque at [phone]. 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 nj1 14:54 Patient transferred, IV remains in place. nj1 Administered Medications: 11:28 Drug: NS 0.9% IV 1000 ml IV at 1 bolus Per protocol; 1000 mL bolus Route: IV; Rate: 1 nj1 bolus; Site: right hand; 12:30 Follow up: Response: No adverse reaction; IV Status: Completed infusion; IV Intake: nj1 1000ml 11:28 Drug: Famotidine IVP 20 mg IVP once; dilute with 10 mL 0.9% NaCl; give over 2 minutes nj1 Route: IVP; Site: right antecubital; 13:48 Follow up: Response: No adverse reaction nj1 13:47 Drug: Pantoprazole IVP 40 mg IVP once Route: IVP; Site: right hand; nj1 14:06 Follow up: Response: No adverse reaction nj1 14:05 Drug: Pantoprazole IV 8 mg/hr IV at 25 ml/hr continuous; (Standard dilution is 80 mg in nj1 250 mL NS) Route: IV; Rate: 25 ml/hr; Site: right hand; 16:45 Follow up: Response: No adverse reaction; IV Status: Infusion continued upon transfer; nj1 IV Intake: 65ml Medication: 14:54 VIS not applicable for this client. nj1 Intake: 12:30 IV: 1000ml; Total: 1000ml. nj1 16:45 IV: 65ml; Total: 1065ml. nj1 Outcome: 12:45 ER care complete, transfer ordered by . ms3 14:52 Transferred by ground EMS to [facility], Transfer form completed. nj1 Note: Report called to Mabel HAQUE 14:52 Condition: stable 14:52 Instructed on the need for transfer, 16:43 Patient left the ED. nj1 Signatures: Dispatcher [employer] Laure Solomon, RN Karol Parekh RN RN Maddie Scott Marcus, DO DO ms3 Ksenia Rosario RN RN nj1
--- NOTE | 2024-01-09 12:45 | EDPHYS ---
Physician Documentation [facility] Name: Omid Saldana Jr Age: 63 yrs Sex: Male : 1960 Arrival Date: 01/09/2024 Time: 10:24 Bed 2 Private MD: ED Physician Prosper Lara HPI: 01/08 10:52 This 63 yrs old Male presents to ER via EMS with complaints of General Weakness, ms3 Black/Tarry Stools. 10:52 63-year-old male with no past medical history of hypertension presents to the emergency ms3 department for generalized weakness, anorexia, and black stools. Patient denies pain. Patient denies any alleviating or inciting factors. Historical: - Allergies: 10:44 Morphine; iw 10:44 PENICILLINS; iw - PMHx: 10:44 Hypertensive disorder; iw - PSHx: 10:44 Gastric Bypass; iw - Immunization history:: Adult Immunizations. - Infectious Disease History:: Denies. - Social history:: Smoking status: . ROS: 10:52 Constitutional: Negative for fever, and chills. Neck: Negative for injury, pain, and ms3 swelling, Cardiovascular: Negative for chest pain, and palpitations. Respiratory: Negative for shortness of breath, cough, wheezing, and pleuritic chest pain, MS/Extremity: Negative for injury and deformity, Skin: Negative for injury, rash, and discoloration, Neuro: Negative for headache, weakness, numbness, tingling. 10:53 Abdomen/GI: Positive for black/tarry stool, ms3 Exam: 10:52 Constitutional: This is a well developed, well nourished patient who is awake, alert, ms3 and in no acute distress. Head/Face: Normocephalic, atraumatic. Chest/axilla: Normal chest wall appearance and motion. Nontender with no deformity. Cardiovascular: Regular rate and rhythm with a normal S1 and S2. No gallops, murmurs, or rubs. Normal PMI, no JVD. No pulse deficits. Respiratory: Lungs have equal breath sounds bilaterally, clear to auscultation and percussion. No rales, rhonchi or wheezes noted. No increased work of breathing, no retractions or nasal flaring. Abdomen/GI: Soft, non-tender, with normal bowel sounds. No distension or tympany. No guarding or rebound. No evidence of tenderness throughout. Skin: Warm, dry with normal turgor. Normal color with no rashes, no lesions, and no evidence of cellulitis. Vital Signs: 10:43 BP 165 / 107; Pulse 114; Resp 18; Temp 99; Pulse Ox 100% on R/A; iw 11:59 BP 163 / 89; Pulse 103; Resp 18; Pulse Ox 100% ; nj1 14:20 BP 136 / 88; Pulse 103; Resp 18; Pulse Ox 100% ; nj1 15:35 BP 129 / 91; Pulse 93; Resp 15; Pulse Ox 100% on R/A; nj1 16:30 BP 123 / 86; Pulse 92; Resp 19; Pulse Ox 100% ; nj1 MDM: 10:42 Patient medically screened. ms3 10:53 Differential Diagnosis Gi bleed vs anemia vs PUD. ms3 12:45 Data reviewed: vital signs, nurses notes, lab test result(s), radiologic studies, and ms3 as a result, I will transfer patient. Consideration of Admission/Observation Transfer. Management of patient was discussed with the following: Primary Care Provider: Dr Sandra- Patient with hx of alcoholism. Will need transfer as GI is not internal communications manager at [facility]. I considered the following discharge prescriptions or medication management in the emergency department Medications were administered in the Emergency Department. See MAR. Historians other than the Patient: EMS: [facility]. Counseling: I had a detailed discussion with the patient and/or guardian regarding the historical points, exam findings, and any diagnostic results supporting the discharge/admit diagnosis, lab results, radiology results, the need to transfer to another facility, [facility] does not immediately have the required specialist. ED course: Case discussed with Dr Armani Vargas and he accepts patient as med-tele at [facility].. 01/08 10:43 Order name: CBC with Diff; Complete Time: 12:16 ms3 01/08 10:43 Order name: CMP; Complete Time: 12:16 ms3 01/08 10:43 Order name: Lipase; Complete Time: 12:16 ms3 01/08 11:17 Order name: CBC Smear Scan; Complete Time: 12:16 EDMS 01/08 10:43 Order name: CT Abd/Pelvis - IV Contrast Only; Complete Time: 12:16 ms3 01/08 10:43 Order name: IV Saline Lock; Complete Time: 11:09 ms3 01/08 10:43 Order name: Labs collected and sent; Complete Time: 11:09 ms3 Administered Medications: 11:28 Drug: NS 0.9% IV 1000 ml IV at 1 bolus Per protocol; 1000 mL bolus Route: IV; Rate: 1 nj1 bolus; Site: right hand; 12:30 Follow up: Response: No adverse reaction; IV Status: Completed infusion; IV Intake: nj1 1000ml 11:28 Drug: Famotidine IVP 20 mg IVP once; dilute with 10 mL 0.9% NaCl; give over 2 minutes nj1 Route: IVP; Site: right antecubital; 13:48 Follow up: Response: No adverse reaction nj1 13:47 Drug: Pantoprazole IVP 40 mg IVP once Route: IVP; Site: right hand; nj1 14:06 Follow up: Response: No adverse reaction nj 14:05 Drug: Pantoprazole IV 8 mg/hr IV at 25 ml/hr continuous; (Standard dilution is 80 mg in nj1 250 mL NS) Route: IV; Rate: 25 ml/hr; Site: right hand; 16:45 Follow up: Response: No adverse reaction; IV Status: Infusion continued upon transfer; nj1 IV Intake: 65ml Disposition Summary: 01/09/24 12:45 Transfer Ordered Notes: Transfer Location: [facility] ms3 Reason: Higher level of care ms3 Condition: Stable ms3 Problem: new ms3 Symptoms: are unchanged ms3 Accepting Physician: Armani Vargas(01/09/24 16:43) nj1 Diagnosis - Upper GI bleed ms3 - Anemia, unspecified ms3 - Weakness ms3 Forms: - Medication Reconciliation Form ms3 - SBAR form ms3 Critical care time excluding procedures: 12:47 Critical care time: Bedside Care: 30 minutes, Consultation: 5 minutes, Family ms3 Intervention: 10 minutes. Total time: 45 minutes Signatures: Dispatcher [employer] Laure Solomon RN RN iw Sims, Marcus, DO DO ms3 Ksenia Rosario RN RN nj1 Corrections: (The following items were deleted from the chart) 10:43 10:43 CBC+H.LAB.BRZ ordered. EDMS EDMS 10:43 10:43 COMPREHENSIVE METABOLIC PANEL+C.LAB.BRZ ordered. EDMS EDMS 10:43 10:43 LIPASE+C.LAB.BRZ ordered. EDMS EDMS 10:53 10:52 Constitutional: Negative for fever, and chills. Neck: Negative for injury, pain, ms3 and swelling, Cardiovascular: Negative for chest pain, and palpitations. Respiratory: Negative for shortness of breath, cough, wheezing, and pleuritic chest pain, Abdomen/GI: Negative for abdominal pain, nausea, vomiting, diarrhea, and constipation, MS/Extremity: Negative for injury and deformity, Skin: Negative for injury, rash, and discoloration, Neuro: Negative for headache, weakness, numbness, tingling. ms3 16:43 12:45 Armani Vargas ms3 nj1
[2024-01-09] MEDS ORDERED: PANTOPRAZOLE 40 MG INJ ONE (13:39)
[2024-01-09] MEDS ORDERED: NA CHLORIDE 0.9% 250 ML ONE (13:40)
[2024-01-09 17:00] VITALS: BP 136/88; TEMP 99; O2SAT 100
== END 2024-01-09 16:43 | disposition short-term general hospital (02) ==
LOC: ER 10:24
DX: D64.9 Anemia, unspecified (principal); R53.1 Weakness; I10 Essential (primary) hypertension; Z98.84 Bariatric surgery status
CPT/HCPCS: 85025; 36415; 83690; 80053; 74177; 99285; Q9967; C9113; J7050; J7030